=== PATIENT | female | born 1990 | race Caucasian/White ===

== ENCOUNTER 2017-10-30 10:18 | Observation (INO) ==
--- NOTE | 2017-10-30 11:58 | OB/GYN Progress Note ---
Date of Encounter: 10/30/17 Time of Encounter: 11:54 - Assessment and Plan (1) 36 weeks gestation of Current Visit: Yes Status: Acute NST reactive. SVE unchanged since office visit yesterday; (2) Hemorrhoids during in third trimester Current Visit: Yes Status: Acute Rx dibucaine Sitz bath given Comfort measures discussed Subjective - Subjective Interval history: 27 year-old presenting at 36w1d with c/o 11 contractions in last hour, brown tinged discharge since SVE yesterday, and pain/pressure with hemorrhoids. She reports the contractions have not gotten any worse since she arrived to triage. SHe denies leaking or bleeding. She also reports movement was decreased but has improved since her arrival to triage. She states her main problem is pain with her hemorrhoids which have gotten severely worse since yesterday. No other complaints. Antepartum ROS: vaginal bleeding (brown tinged discharge since SVE yesterday), movement normal, contractions, no loss of fluid Objective - Vital Signs Vital Signs: Intake and Output 10/29/17 10/30/17 10/30/17 23:59 07:59 15:59 Other: Weight 62.142 kg Patient Weight 10/30/17 23:59 Weight 62.142 kg - Exam FHR: category 1 FHR comments: NST reactive Abdomen: Present: soft, gravid Cervical dilation: 1cm per RN, unchanged from yesterday
[2017-10-30 20:58] LABS: Amphetamine Screen,Urine Negative ng/mL (Cutoff=1000); Barbiturate Screen,Urine Negative ng/mL (Cutoff=200); Benzodiazepines Screen,Urine Negative ng/mL (Cutoff=200); Cannabinoid Screen,Urine Negative ng/mL (Cutoff = 50); Cocaine Screen,Urine Negative ng/mL (Cutoff= 300); Opiate Screen,Urine Negative ng/mL (Cutoff=300); Phencyclidine Screen,Urine Negative ng/mL (Cutoff=25)
== END 2017-10-30 12:00 | disposition home or self-care (01) ==
LOC: 1NENULAB
PROVIDERS: ADMIT Obstetrics & Gynecology; ATTEND Obstetrics & Gynecology

== ENCOUNTER → 2017-11-14 21:19 | Observation (INO) ==
[2017-11-14 20:18] VITALS: BP 125/67
[2017-11-14 20:47] LABS: Amphetamine Screen,Urine Negative ng/mL (Cutoff=1000); Barbiturate Screen,Urine Negative ng/mL (Cutoff=200); Benzodiazepines Screen,Urine Negative ng/mL (Cutoff=200); Cannabinoid Screen,Urine Negative ng/mL (Cutoff = 50); Cocaine Screen,Urine Negative ng/mL (Cutoff= 300); Opiate Screen,Urine Negative ng/mL (Cutoff=300); Phencyclidine Screen,Urine Negative ng/mL (Cutoff=25)
--- NOTE | 2017-11-14 22:34 | OB/GYN Progress Note ---
Date of Encounter: 11/14/17 Time of Encounter: 22:32 - Assessment and Plan (1) 38 weeks gestation of Status: Acute (2) Encounter for suspected PROM, with rupture of membranes not found Status: Acute Exam shows scant amount of thick white vaginal discharge. Nitrazine negative, fern negative patient discharged home with labor and when to return to triage precautions. Patient verbalizes understanding Subjective - Subjective Interval history: 38+2 weeks gestation Patient states all afternoon she feels like she has been leaking fluid. Reports good movement, denies vaginal bleeding or contractions. Antepartum ROS: loss of fluid, movement normal, no vaginal bleeding, no contractions Objective - Vital Signs Vital Signs: Vital Signs Temp Pulse Resp BP 11/14/17 20:07 99.0 F 89 16 125/67 Intake and Output 11/14/17 11/14/17 11/14/17 07:59 15:59 23:59 Other: Weight 64.7 kg Patient Weight 11/14/17 23:59 Weight 64.7 kg - Exam FHR: auscultation normal FHR comments: Initial tracing with minimal to absent variability, tracing improved and became reactive NST Abdomen: Present: soft, gravid Cervical dilation:
== END | disposition home or self-care (01) ==
LOC: 1NENULAB
PROVIDERS: ADMIT Advanced Practice Midwife; ATTEND Advanced Practice Midwife

== ENCOUNTER 2017-11-19 09:54 | Inpatient (IN) ==
[2017-11-19] MEDS ORDERED: Famotidine 20 MG/2 ML VIAL IVP ONE (10:19)
[2017-11-19] MEDS ORDERED: Metoclopramide 10 MG/2 ML VIAL IVP ONE (10:19)
[2017-11-19] MEDS ORDERED: Ringers Solution, Lactated 1,000 ML IVC ONE (10:19)
[2017-11-19] MEDS ORDERED: CeFAZolin Premix DUPLEX 2,000 MG/50 ML BAG IVPB ONE (10:19)
[2017-11-19] MEDS ORDERED: Ringers Solution, Lactated 1,000 ML IVC SCH (10:30)
[2017-11-19 10:48] LABS: Basophils % 0.3 %; Eosinophils # 0.1 K/mcL (0.0-0.6); Eosinophils % 1.2 %; Hematocrit 33.1 % (35.3-44.9); Hemoglobin 11.2 g/dL (11.5-15.4); Immature Granulocytes % 0.6 % (0-4); Lymphocytes # 2.7 K/mcL (0.6-4.6); Lymphocytes % 22.5 %; Mean Corpuscular HGB Conc 33.8 g/dL (31.6-35.5); Mean Corpuscular Hemoglobin 30.9 pg (28.0-33.3); Mean Corpuscular Volume 91.4 fL (83.0-100.0); Mean Platelet Volume 10.4 fL (9.4-12.4); Monocytes # 0.6 K/mcL (0.0-1.3); Monocytes % 5.3 %; Neutrophils # 8.3 K/mcL (1.6-8.9); Platelet Count 290 K/mcL (140-400); Red Blood Count 3.62 M/mcL (3.82-4.97); Red Cell Distribution Width 13.1 % (11.5-14.5); Segmented Neutrophils % 70.1 %
--- NOTE | 2017-11-19 11:38 | Anesthesia Evaluation PreOp ---
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[employer] History: Denies Any Significant HX Other Medical History: Denies Any Significant HX Anesthesia History: No Prior Anesthetic Complications (denies h/o NA complications; never had GA; denies family h/o GA complications) : Yes Test: Positive Alcohol Use: none Drug use: none Medications and Allergies 3 Allergy/AdvReac Type Severity Reaction Status Date / Time codeine AdvReac Nausea Verified 11/14/17 20:09 [From Tylenol-Codeine #3] tramadol AdvReac Nausea Verified 11/14/17 20:09 - Meds/Allergy Pre-op Review Medications Reviewed: Yes Allergies Reviewed: Yes Beta Blockers on Current Med List: No Anesthesia Results - Labs 11/19/17 10:30 Anesthesia Exam 117/65, HR 77, RR 15 O2 Sat Height 1.6 m Weight 63.2 kg NPO (# of Hours): >8hrs Pain Scale: 0 Pain Scale Used: Numeric (1 - 10) - HEENT Pupil (Motor): Pupils equal Mallampati: I Teeth: Normal, Prosthesis Denture Type: Upper: Partial Oral Opening: Greater than 3 - DISPATCH[employer] LOC: Oriented [employer] Motor: Normal RUE, Normal LUE, Normal RLE, Normal LLE, Normal Face [employer]PATCH[employer] Sensory: Normal: RUE, LUE, RLE, LLE, Face - Cardiac Rhythm: Regular Murmur: None - Pulmonary Breath Sounds: bilateral Clear Respiratory Effort: Symmetrical Anesthesia Assess/Plan ASA Score: 2 Modified [place] Scale for Level of Consciousness: Cooperative, oriented, and tranquil Anesthetic Plan: Regional Autologous Blood: No Monitoring Plan: Standard Monitors Recovery Plan: PACU
[2017-11-19] MEDS ORDERED: Morphine Sulfate/PF 5mg/10mL Vial ONE (11:40)
[2017-11-19] MEDS ORDERED: Lidocaine -MPF 2% 5 ML VIAL ONE (11:40)
[2017-11-19] MEDS ORDERED: *HR* FentaNYL (PF) 100 MCG/2 ML VIAL ONE (11:40)
[2017-11-19] MEDS ORDERED: Bupivacaine/PF 0.75% in Dex 2 ML AMPUL INFILT ONE (11:44)
--- NOTE | 2017-11-19 12:25 | OB/GYN History & Physical ---
Date of Encounter: 11/19/17 Time of Encounter: 12:24 Assessment and Plan (1) 39 weeks gestation of Current visit: Yes Status: Acute Pt at 39 weeks EGA presents for repeat c-sec and BPS. Consent obtained and questions answered. History of Present Illness Chief complaint: Here for repeat c-sec and BPS HPI: Ms. Thompson is a 27 year old female female at 39 weeks EGA presents for repeat and BPS. Pt reports +GFM, no vb or lof. Past Med Surg Social Fam HX - Past Medical History Source: patient, old records reviewed Medical history: no medical history Psychiatric history: depression - Past Surgical History Surgical History: Additional surgical history: dental surgery, episiotomy repair, c section - Social History Smoking Status: Current every day smoker Packs per day: 2 Smokeless Tobacco Status: No Alcohol use: none Drug use: none - Family History Mother Name: marissa melendez Age: 47 Living Status: Still Living Hx Family Cardiac Disorders: No Hx Family Respiratory Disorders: No Hx Family Cancer: No Hx Family GI Disorders: No Hx Family Genitourinary Disorders: No Hx Family Endocrine Disorder: No Hx Family Musculoskeletal Disorders: No Hx Family Neuromuscular Disorders: No Hx Family Neurologic Disorders: No Hx Family HEENT Disorders: No Hx Family Autoimmune Disorders: No Hx Family Reproductive Disorders: No Hx Family Psychosocial Disorders: No Hx Family Medical Disorders: No Obstetrical History - Pregnancies : 4 Para: 3 Medications and Allergies 3 Allergy/AdvReac Type Severity Reaction Status Date / Time codeine AdvReac Nausea Verified 11/14/17 20:09 [From Tylenol-Codeine #3] tramadol AdvReac Nausea Verified 11/14/17 20:09 Exam - Constitutional Constitutional: well developed - HEENT HEENT: EOMI, PERRL - Neck Neck exam: full ROM - Lungs Respiratory exam: CTAB - Cardiovascular Cardiovascular exam: RRR - Abdomen Abdomen: Present: gravid - Extremities Extremities exam: full ROM Deep Tendon Reflex Grade: 2+ Normal - Cervix Dilation: 1 Effacement: 80 Station: -2 Results Result Diagrams: 11/19/17 10:30 Abnormal lab results WBC 11.8 K/mcL (4.3-11.1) H 11/19/17 10:30 RBC 3.62 M/mcL (3.82-4.97) L 11/19/17 10:30 Hgb 11.2 g/dL (11.5-15.4) L 11/19/17 10:30 Hct 33.1 % (35.3-44.9) L 11/19/17 10:30 All other labs normal. - VTE Reasons for not Prescribing Prophylaxis: Treatment not Indicated - Low risk for VTE
[2017-11-19] MEDS ORDERED: *HR* Oxytocin 10 UNIT/ML VIAL IM ONE (12:58)
[2017-11-19] MEDS ORDERED: Ringers Solution, Lactated 1,000 ML ONE (12:59)
[2017-11-19 13:03] LABS: Amphetamine Screen,Urine Negative ng/mL (Cutoff=1000); Barbiturate Screen,Urine Negative ng/mL (Cutoff=200); Benzodiazepines Screen,Urine Negative ng/mL (Cutoff=200); Cannabinoid Screen,Urine Negative ng/mL (Cutoff = 50); Cocaine Screen,Urine Negative ng/mL (Cutoff= 300); Opiate Screen,Urine Negative ng/mL (Cutoff=300); Phencyclidine Screen,Urine Negative ng/mL (Cutoff=25)
[2017-11-19] MEDS ORDERED: Metoclopramide 10 MG/2 ML VIAL IVP PRN (13:40)
[2017-11-19] MEDS ORDERED: Sennosides 8.6 MG TABLET PO PRN (13:40)
[2017-11-19] MEDS ORDERED: Rho Immune Globulin 1,500 UNIT SYRINGE IM ONE (13:40)
[2017-11-19] MEDS ORDERED: Simethicone 80 MG TAB.CHEW PO PRN (13:40)
[2017-11-19] MEDS ORDERED: Ondansetron 4 MG/2 ML VIAL IVP PRN ×2 (13:40→13:55)
[2017-11-19] MEDS ORDERED: Oxytocin 20 units/ LR 1000 mL 20 UNIT/1,000 ML BAG IVC SCH (13:45)
--- NOTE | 2017-11-19 13:46 | OB/GYN Procedure Note ---
Section - Date of procedure: 11/19/17 Preop diagnosis: desires repeat , desires sterilization Post-op diagnosis: same Procedure: section, repeat low transverse, bilateral tubal ligation Surgeon: Mina Jean-Baptiste Blood Loss: 500 Was there an insurance sales assistant present: No Anesthesiologist: Devang Dai Casting Plug Assembler: Cirilo Muir Anesthesia Type: Spinal section complications: none Disposition: L&D Recovery Room Specimens: Placenta - (s) A Delivery Date: 11/19/17 Infant Delivery Time: 13:01 Presentation: vertex Gender: Female Gram Weight: 3.085 kg at 1 minute: 8 at 5 minutes: 9 Shoulder Dystocia: not encountered Placenta: spontaneous, uterine exploration Cord: 3 umbilical vessels - Narrative Narrative: Patient's 27-year-old female presents for repeat section and tubal ligation. She is aware operative risks and signed appropriate consent. Description procedure: Patient was taken operating room where anesthesia was administered. She was prepped draped in usual sterile fashion bladder was drained of clear urine. Scalpel was used to make Pfannenstiel skin incision which was sharply taken down the rectus fascia. Fascia incised midline fascial incision was extended bilaterally. Plane is developed and rectus muscle rectus fascia superiorly and distally rectus muscles divided midline peritoneum was entered sharply. Bladder flap was developed and lower uterine segment and bladder was placed. Scalpel was used to make a low transverse uterine incision this was extended bluntly bilaterally. Membranes ruptured clear fluid. was delivered from vertex presentation. Cord was clamped and cut and infant was handed to nursery personnel. Placenta was removed manually without difficulty and uterine cavity was massaged free of residual tissue and closed with 0 Vicryl running lock stitch. Second imbricating layer was placed with the first obtain hemostasis. Both fallopian tubes were identified approximately 4 cm knuckle of each tube was double ligated with oh plain catgut suture transected and removed without difficulty hemostasis of the tubal ends was ensured. Irrigation was performed hemostasis was ensured. Fascia was closed 0 Vicryl running manner. Closed the fascia again irrigation was performed hemostasis was ensured skin edges reapproximated with 4-0 Vicryl. All sponge and counts are correct patient taken recovery in good condition.
[2017-11-19] MEDS ORDERED: *HR* Promethazine 25 MG/ML VIAL IVP PRN (13:55)
[2017-11-19] MEDS ORDERED: Naloxone 0.4 MG/ML INJ IVP PRN (13:55)
--- NOTE | 2017-11-19 13:59 | Anesthesia Procedures ---
Date of Encounter: 11/19/17 Time of Encounter: 12:38 Procedures: Anesthesia - Epidural/Spinal Patient ID/Chart reviewed: Yes Patient examined: Yes OB Eval: : 4 OB Eval: Hx Para: 3 OB Eval: Contractions: Non-stressed pattern Consent Obtained: Yes Supplemental Oxygen: None/Room Air Site Prep: Aseptic Technique, Sterile prep and drape, Povidone-Iodine 1% Patient position: upright Local Anesthetic: Lidocaine 1% Amount of Local Anesthetic used: 3 Blood: No CSF: Yes Paresthesia: No Spinal Needle Gauge: 25 (3.5" pencil point needle) Spinal Dose: see anesthesia record Procedure: successful on 1st attempt. patient tolerated procedure well. Vitals + FHT's: see anesthesia record
--- NOTE | 2017-11-19 14:00 | Anesthesia Evaluation Post Op ---
Date of Encounter: 11/19/17 Time of Encounter: 13:59 - Vital Signs Vital Signs: 101/63, HR 64, SpO2 98%, T97.6F, RR 16 - Lungs Lungs: Clear Ascult./Percussion - Airway Airway: Non-obstructed - Cardiovascular Regular Rate - Mental Status Mental Status: Alert & Oriented, Answers Appropriately - Pain Pain Scale: 0 Pain Scale used: Numeric (1 - 10) - Nausea Vomiting Nausea Vomiting: Not Present - Hydration Hydration: NPO, Fonseca catheter - Discharge PostOp Status: Transfer Patient to floor
[2017-11-19] MEDS ORDERED: Ketorolac 30 MG/ML VIAL IVP ONE (14:45)
[2017-11-19] MEDS ORDERED: Acetaminophen IV 1,000 MG/100 ML INFUS..BTL IVPB ONE (14:45)
[2017-11-19] MEDS ORDERED: *HR* HYDROmorphone 2 MG TABLET PO PRN (14:46)
[2017-11-19] MEDS: *HR* OxyCODONE/APAP 5/325 TABLET PO PRN ×2 (16:35→23:02)
[2017-11-19] MEDS: Ibuprofen 600 MG TABLET PO PRN (23:02)
[2017-11-20] MEDS: *HR* OxyCODONE/APAP 5/325 TABLET PO PRN ×2 (04:24→10:23)
[2017-11-20 04:36] LABS: Basophils # 0.1 K/mcL (0.0-0.2); Basophils % 0.4 %; Eosinophils # 0.1 K/mcL (0.0-0.6); Eosinophils % 0.7 %; Hemoglobin 11.2 g/dL (11.5-15.4); Immature Granulocytes % 0.6 % (0-4); Lymphocytes # 2.5 K/mcL (0.6-4.6); Lymphocytes % 14.6 %; Mean Corpuscular HGB Conc 33.9 g/dL (31.6-35.5); Mean Corpuscular Hemoglobin 31.5 pg (28.0-33.3); Mean Platelet Volume 10.1 fL (9.4-12.4); Monocytes # 0.8 K/mcL (0.0-1.3); Monocytes % 4.7 %; Neutrophils # 13.4 K/mcL (1.6-8.9); Platelet Count 272 K/mcL (140-400); Red Blood Count 3.55 M/mcL (3.82-4.97); Red Cell Distribution Width 12.8 % (11.5-14.5)
[2017-11-20] MEDS: Ibuprofen 600 MG TABLET PO PRN (08:16)
[2017-11-20 08:36] VITALS: BP 103/66
[2017-11-20] MEDS ORDERED: Prenatal Vit/FA 1 EACH TABLET PO SCH (09:00)
--- NOTE | 2017-11-20 09:45 | OB/GYN Progress Note ---
Date of Encounter: 11/20/17 Time of Encounter: 09:42 - Assessment and Plan (1) Status post repeat low transverse section Current Visit: Yes Status: Acute Continue routine care Use abdominal binder liberally Anticipate discharge home tomorrow Subjective - Subjective Principal diagnosis: s/p RLTCS Interval history: OOB without dizziness. Feeling well. Some abdominal discomfort-using abdominal binder. Reports intense itching likely related to spinal medication- requesting Benadryl. Reports bleeding is light. Patient reports: appetite normal, voiding normally, pain well controlled, ambulating normally [place]: doing well, bottle feeding Objective - Vital Signs Latest vital signs: Vital Signs Temp Pulse Resp BP Pulse Ox 11/20/17 07:55 97.9 F 74 12 103/66 97 11/20/17 04:00 97.5 F L 70 16 112/60 99 11/19/17 23:05 98.2 F 67 16 113/67 99 11/19/17 20:00 97.4 F L 65 14 114/75 99 11/19/17 18:00 97.7 F 67 16 122/74 99 11/19/17 17:00 16 11/19/17 16:34 97.5 F L 55 16 113/57 98 11/19/17 16:30 14 11/19/17 16:11 98.1 F 60 16 111/68 99 11/19/17 16:00 12 Intake and Output 11/19/17 11/20/17 11/20/17 23:59 07:59 15:59 Intake Total 2700 / 2700 Output Total 500 / 500 2400 / 2400 Balance -500 / -500 300 / 300 Intake: Oral 2700 / 2700 Output: Urine 2400 / 2400 Catheter 500 / 500 Other: Stool Characteristics Normal for Patient Normal for Patient Weight 61.235 kg Patient Weight 11/20/17 23:59 Weight 61.235 kg - Exam Lungs: bilateral: normal Chest: Normal S1, Normal S2 Extremities: Present: normal Abdomen: Present: normal appearance, soft Incision: Present: normal, intact, dressed Uterus: Present: normal, firm Fundal Height: 1 (Below umbilicus) Comments: Breasts: Soft, nontender - Labs Labs: Laboratory Results - last 24 hr 11/19/17 11/19/17 11/19/17 10:30 10:30 10:30 WBC 11.8 H RBC 3.62 L Hgb 11.2 L Hct 33.1 L MCV 91.4 MCH 30.9 MCHC 33.8 RDW 13.1 Plt Count 290 MPV 10.4 Immature Gran % 0.6 Seg Neutrophils % 70.1 Lymphocytes % 22.5 Monocytes % 5.3 Eosinophils % 1.2 Basophils % 0.3 Neutrophils # 8.3 Lymphocytes # 2.7 Monocytes # 0.6 Eosinophils # 0.1 Basophils # 0.0 Urine Opiates Screen Negative Ur Barbiturates Screen Negative Ur Phencyclidine Scrn Negative Ur Amphetamines Screen Negative U Benzodiazepines Scrn Negative Urine Cocaine Screen Negative U Marijuana (THC) Screen Negative Blood Type A POSITIVE Antibody Screen NEGATIVE 11/20/17 04:23 WBC 17.0 H RBC 3.55 L Hgb 11.2 L Hct 33.0 L MCV 93.0 MCH 31.5 MCHC 33.9 RDW 12.8 Plt Count 272 MPV 10.1 Immature Gran % 0.6 Seg Neutrophils % 79.0 Lymphocytes % 14.6 Monocytes % 4.7 Eosinophils % 0.7 Basophils % 0.4 Neutrophils # 13.4 H Lymphocytes # 2.5 Monocytes # 0.8 Eosinophils # 0.1 Basophils # 0.1 Urine Opiates Screen Ur Barbiturates Screen Ur Phencyclidine Scrn Ur Amphetamines Screen U Benzodiazepines Scrn Urine Cocaine Screen U Marijuana (THC) Screen Blood Type Antibody Screen
--- NOTE | 2017-11-20 11:47 | Discharge Summary ---
Date of Encounter: 11/20/17 Time of Encounter: 11:35 - Discharge Diagnosis (1) Status post repeat low transverse section Priority: Primary Status: Acute Comments: Vital signs stable Pain well controlled with by mouth pain meds Tolerating regular diet Voiding independently Passing flatus, but no BM yet Lochia light Ambulating independently Bottlefeeding Requesting discharge today - Discharge Medications Prescriptions: OxyCODONE/APAP 5/325 [Percocet 5/325 MG] 1 each PO Q4HR PRN 5 Days #30 tablet PRN Reason: Moderate pain 4-6 Ibuprofen [Motrin] 600 mg PO Q6HR PRN #30 tablet PRN Reason: Cramping Docusate [Colace] 100 mg PO BID #30 capsule Home Medications: Docusate [Colace] 100 mg PO BID #30 capsule 11/20/17 [Rx] Ibuprofen [Motrin] 600 mg PO Q6HR PRN #30 tablet 11/20/17 [Rx] OxyCODONE/APAP 5/325 [Percocet 5/325 MG] 1 each PO Q4HR PRN 5 Days #30 tablet [Rx] Vit/FA 1 each PO DAILY tablet 11/20/17 [Rx] Allergies/Adverse Reactions: 3 Allergy/AdvReac Type Severity Reaction Status Date / Time codeine AdvReac Nausea Verified 11/14/17 20:09 [From Tylenol-Codeine #3] tramadol AdvReac Nausea Verified 11/14/17 20:09 Data Procedures and tests throughout hospitalization: Laboratory Tests 11/19/17 11/19/17 11/19/17 10:30 10:30 10:30 WBC 11.8 H RBC 3.62 L Hgb 11.2 L Hct 33.1 L MCV 91.4 MCH 30.9 MCHC 33.8 RDW 13.1 Plt Count 290 MPV 10.4 Immature Gran % 0.6 Seg Neutrophils % 70.1 Lymphocytes % 22.5 Monocytes % 5.3 Eosinophils % 1.2 Basophils % 0.3 Neutrophils # 8.3 Lymphocytes # 2.7 Monocytes # 0.6 Eosinophils # 0.1 Basophils # 0.0 Urine Opiates Screen Negative Ur Barbiturates Screen Negative Ur Phencyclidine Scrn Negative Ur Amphetamines Screen Negative U Benzodiazepines Scrn Negative Urine Cocaine Screen Negative U Marijuana (THC) Screen Negative Blood Type A POSITIVE Antibody Screen NEGATIVE 11/20/17 04:23 WBC 17.0 H RBC 3.55 L Hgb 11.2 L Hct 33.0 L MCV 93.0 MCH 31.5 MCHC 33.9 RDW 12.8 Plt Count 272 MPV 10.1 Immature Gran % 0.6 Seg Neutrophils % 79.0 Lymphocytes % 14.6 Monocytes % 4.7 Eosinophils % 0.7 Basophils % 0.4 Neutrophils # 13.4 H Lymphocytes # 2.5 Monocytes # 0.8 Eosinophils # 0.1 Basophils # 0.1 Urine Opiates Screen Ur Barbiturates Screen Ur Phencyclidine Scrn Ur Amphetamines Screen U Benzodiazepines Scrn Urine Cocaine Screen U Marijuana (THC) Screen Blood Type Antibody Screen Labs on day of discharge: Labs from last 24 hours 11/20/17 11/19/17 04:23 10:30 WBC 17.0 H RBC 3.55 L Hgb 11.2 L Hct 33.0 L MCV 93.0 MCH 31.5 MCHC 33.9 RDW 12.8 Plt Count 272 MPV 10.1 Immature Gran % 0.6 Seg Neutrophils % 79.0 Lymphocytes % 14.6 Monocytes % 4.7 Eosinophils % 0.7 Basophils % 0.4 Neutrophils # 13.4 H Lymphocytes # 2.5 Monocytes # 0.8 Eosinophils # 0.1 Basophils # 0.1 Urine Opiates Screen Negative Ur Barbiturates Screen Negative Ur Phencyclidine Scrn Negative Ur Amphetamines Screen Negative U Benzodiazepines Scrn Negative Urine Cocaine Screen Negative U Marijuana (THC) Screen Negative Date of admission: 11/19/17 09:54 Primary care physician: Dashawn Bro Discharging clinician: Daniela Brooks Anticipated date of discharge: 11/20/17 - Patient Status Disposition: Home, Self-Care Condition: Good Functional capacity at discharge: independent ambulation Overall status at discharge: patient is progressing back to baseline - Discharge Instructions Follow Up With: Dashawn Bro MD [Primary Care Provider] - Mina Middleton MD [Partnered Physician] - - Diet and Activity Activity: increase activity as tolerated Diet: regular diet Hospital Course Reason for admission: section, IUP at term Delivery: section Episiotomy: none Laceration: none Other procedures: tubal ligation complications: none Discharge diagnosis: IUP at term delivered [place] baby: male Time Attestation: Total time spent providing and/or coordinating discharge services: Time Spent: Less than 30 minutes - VTE Reasons for not Prescribing Prophylaxis: Treatment not Indicated - Low risk for VTE Documentation of Mechanical Device: Intermittent pneumatic compression device Exam - Constitutional Vitals: Temp Pulse Resp BP Pulse Ox 97.9 F 74 12 103/66 97 11/20/17 07:55 11/20/17 07:55 11/20/17 07:55 11/20/17 07:55 11/20/17 07:55 General appearance IM: A&O X 3 - Respiratory Respiratory exam: Present: CTAB - Cardiovascular Cardiovascular exam IM: Present: RRR, +S1, +S2 - GI/Abdominal GI/Abdominal exam IM: normal bowel sounds, no peritoneal signs Incision: normal, intact, dressed - Rectal Rectal exam: deferred - Uterine Tone: Firm Uterus Position: 1 Finger Below Umbilicus, Midline - Extremities Exam Extremities exam IM: Present: normal capillary refill, normal inspection, pedal edema, radial pulses palpable and symmetrical - Neurological Exam Neurological exam: alert, CN II-XII intact, normal gait, oriented X3, reflexes normal, no focal deficits, strengths equal and symetr throughout - Psychiatric Additional comments: Signs and symptoms of depression discussed with patient and partner. They both verbalize understanding of when to call for help. - Other Additional findings: Breasts: Soft, nontender
== END 2017-11-20 20:00 | disposition home or self-care (01) | DRG 766 ==
LOC: 1NENULAB 09:54 → 1NENUOBS 14:11
PROVIDERS: ADMIT Obstetrics & Gynecology; ATTEND Obstetrics & Gynecology